=== PATIENT | female | born 1960 | race Caucasian/White ===

== ENCOUNTER 2017-10-11 23:08 | Inpatient (IN) | payer MEDICARE ==
--- NOTE | 2017-10-11 23:53 | ED ---
Psych HPI - General Source: patient Mode of arrival: ambulatory <Kevin Reis - Last Filed: 10/11/17 23:50> <Vin Ford - Last Filed: 10/12/17 03:09> - General Chief Complaint: Psychiatric Symptoms Stated Complaint: mental health Time Seen by Provider: 10/11/17 23:18 - History of Present Illness Initial Comments: This 57-year-old white female presents with a complaint of some depression and suicidal ideations. She states that she has long-standing history of depression. She got out of a psychiatric facility in [place] approximately 3 weeks ago after a month long stay for depression. She states that the depression is back and is fairly severe. She relates a strong family history of depression and suicide. She does have a long history of alcohol abuse and was drinking tonight as well. She states that one point she was drinking up to 1/5 of alcohol per day. She has been homeless and was living in a tent in [place]. Her family member apparently just recently picked her up. Upon questioning regarding drug abuse she does relate that she's taken some Adderall recently. She denies any other complaints or modifying factors. ( Kevin Reis) - Related Data Allergies Allergy/AdvReac Type Severity Reaction Status Date / Time No Known Allergies Allergy Verified 10/11/17 23:14 Review of Systems ROS Other: All systems not noted in ROS Statement are negative. <Kevin Reis - Last Filed: 10/11/17 23:50> ROS Other: All systems not noted in ROS Statement are negative. <Vin Ford - Last Filed: 10/12/17 03:09> ROS Statement: Those systems with pertinent positive or pertinent negative responses have been documented in the HPI. Past Medical History Past Medical History: Hyperlipidemia, Osteoarthritis (OA) Additional Past Medical History / Comment(s): chronic neck and back pain, ETOH abuse, cyst on liver History of Any Multi-Drug Resistant Organisms: None Reported Past Surgical History: Back Surgery, Orthopedic Surgery Past Psychological History: Bipolar Smoking Status: Current every day smoker Past Alcohol Use History: Abuse, Daily Past Drug Use History: Heroin, Opiates, Prescription Drug Abuse <Kevin Reis - Last Filed: 10/11/17 23:50> General Exam Limitations: no limitations <Kevin Reis - Last Filed: 10/11/17 23:50> <Vin Ford - Last Filed: 10/12/17 03:09> - General Exam Comments Initial Comments: GENERAL: The patient is well nourished and well hydrated. VITAL SIGNS: Heart rate, blood pressure, respiratory rate reviewed as recorded in nurse's notes. EYES: Pupils are round and reactive. Extraocular movements are intact. No conjunctival / lid redness or swelling. ENT: No external evidence of injury, swelling, or ecchymosis. Airway is patent. Throat is clear. NECK: Nontender. No swelling or evidence of injury. No subcutaneous emphysema. Trachea is midline. No thyroid mass. HEART: Regular rate and rhythm. Good peripheral pulses. LUNGS/CHEST: Breath sounds clear and equal bilaterally. No rales, rhonchi, or wheezes. No ecchymosis, subcutaneous emphysema, or tenderness. ABDOMEN: Abdomen soft without tenderness. No palpable masses or organomegaly. No peritoneal signs. No abdominal wall swelling or ecchymosis. EXTREMITIES: No extremity tenderness. Normal muscle tone and function. No thoracolumbar tenderness. NEUROLOGIC: Sensation is grossly intact. Cranial nerve exam reveals face is symmetrical, tongue is midline, speech is clear. SKIN: No abrasions or ecchymosis is noted. No induration or masses noted. PSYCHIATRIC: Alert and oriented. Appropriate behavior and judgment. (Kevin Reis) Vital Signs 10/11/17 23:09 Temperature 98.2 F Pulse Rate 75 Respiratory 18 Rate Blood Pressure 142/88 O2 Sat by Pulse 98 Oximetry Medical Decision Making <Kevin Reis - Last Filed: 10/11/17 23:50> <Vin Ford - Last Filed: 10/12/17 03:09> - Medical Decision Making The patient was seen and examined. All diagnostics were reviewed. Her alcohol breath test came in 0.09. A psychiatric consult is placed and is currently pending. (Kevin Reis) - Lab Data Lab Results 10/11/17 Range/Units 23:45 Urine Opiates Screen Not Detected (NotDetected) Ur Oxycodone Screen Not Detected (NotDetected) Urine Methadone Screen Not Detected (NotDetected) Ur Propoxyphene Screen Not Detected (NotDetected) Ur Barbiturates Screen Not Detected (NotDetected) U Tricyclic Antidepress Not Detected (NotDetected) Ur Phencyclidine Scrn Not Detected (NotDetected) Ur Amphetamines Screen Not Detected (NotDetected) U Methamphetamines Scrn Not Detected (NotDetected) U Benzodiazepines Scrn Not Detected (NotDetected) Urine Cocaine Screen Not Detected (NotDetected) U Marijuana (THC) Screen Not Detected (NotDetected) Disposition Is patient prescribed a controlled substance at d/c from ED?: No <Kevin Reis - Last Filed: 10/11/17 23:50> Time of Disposition: 03:09 <Vin oFrd - Last Filed: 10/12/17 03:09> Clinical Impression: Depression, Suicidal ideation, Alcohol intoxication, Alcohol abuse, Drug abuse Disposition: ADMITTED IP TO THIS HOSP Condition: Fair
[2017-10-12 00:07] LABS: Amphetamine Screen,Urine Not Detected (NotDetected); Barbiturate Screen,Urine Not Detected (NotDetected); Benzodiazepines Screen,Urine Not Detected (NotDetected); Cocaine Screen,Urine Not Detected (NotDetected); Methadone Screen, Urine Not Detected (NotDetected); Opiate Screen,Urine Not Detected (NotDetected); Oxycodone Screen, Urine Not Detected (NotDetected); Phencyclidine Screen,Urine Not Detected (NotDetected); Tricyclic Antidepressant,Urine Not Detected (NotDetected); Urn Cannabinoid Scrn Not Detected (NotDetected)
[2017-10-12] MEDS ORDERED: MAGNESIUM HYDROXIDE 2,400 MG/10 ML CUP PO PRN (03:21)
[2017-10-12] MEDS ORDERED: MAG HYDROX/AL HYDROX/SIMETH 30 ML CUP PO PRN (03:21)
[2017-10-12] MEDS ORDERED: POLYETHYLENE GLYCOL 3350 17 GM POWD.PACK PO PRN (06:53)
[2017-10-12] MEDS: LORazepam 1 MG TAB PO SCH ×2 (08:26→20:45)
[2017-10-12] MEDS: ACETAMINOPHEN TAB 325 MG TAB PO PRN ×2 (08:28→14:59)
[2017-10-12 08:37] LABS: Basophils % (A) 1 %; Eosinophils # (A) 0.4 k/uL (0-0.7); Eosinophils % (A) 7 %; HCT 44.3 % (34.0-46.0); HGB 14.9 gm/dL (11.4-16.0); Lymphocytes # (A) 2.5 k/uL (1.0-4.8); Lymphocytes % (A) 41 %; MCH 33.9 pg (25.0-35.0); MCHC 33.7 g/dL (31.0-37.0); MCV 100.5 fL (80.0-100.0); Mean Platelet Volume 7.4; Monocytes # (A) 0.4 k/uL (0-1.0); Monocytes % (A) 6 %; Neutrophils # (A) 2.6 k/uL (1.3-7.7); Neutrophils % (A) 41 %; Platelet Count 239 k/uL (150-450); RBC 4.41 m/uL (3.80-5.40); RDW 13.3 % (11.5-15.5); WBC 6.2 k/uL (3.8-10.6)
[2017-10-12 08:48] LABS: ALT 175 U/L (9-52); AST 135 U/L (14-36); Albumin 4.2 g/dL (3.5-5.0); Alkaline Phosphatase 107 U/L (38-126); Anion Gap 12 mmol/L; Blood Urea Nitrogen 10 mg/dL (7-17); Calcium 9.6 mg/dL (8.4-10.2); Carbon Dioxide 30 mmol/L (22-30); Chloride 101 mmol/L (98-107); Cholesterol 256 mg/dL (<200); Glucose 122 mg/dL (74-99); HDL Cholesterol 103 mg/dL (40-60); LDL Cholesterol,Calculated 137 mg/dL (0-99); Sodium 143 mmol/L (137-145); Total Bilirubin 0.8 mg/dL (0.2-1.3); Triglycerides 80 mg/dL (<150)
[2017-10-12] MEDS: NICOTINE 21MG/24HR PATCH TRANSDERM SCH (08:53)
[2017-10-12] MEDS: FOLIC ACID 1 MG TAB PO SCH (12:01)
[2017-10-12] MEDS: THIAMINE 100 MG TAB PO SCH (12:01)
--- NOTE | 2017-10-12 12:14 | HP ---
HISTORY AND PHYSICAL DATE OF SERVICE/DICTATION: 10/12/2017 IDENTIFYING DATA: This patient is a 57-year-old female who was admitted to the mental health unit through the emergency room with suicidal ideation. The patient presented with her friend stating that she had been feeling markedly depressed, hopeless and suicidal. She had plans of overdosing with medication or cutting her wrist. She states that she has a long history of mental illness symptoms. She states that she has been diagnosed with bipolar disorder. However, she reports never having a hypomanic or manic episode. We reviewed criteria for hypomania or lissett, and she does not endorse those. She states that she has had numerous depressive episodes as we review criteria for those. Her sleep has been poor as she has been off of Seroquel for 3 weeks. Appetite has been decreased. She has experienced some nausea. Energy level is low. She does feel hopeless. She describes having no thoughts of harming others. She is endorsing no auditory or visual hallucinations or any specific delusions. She endorses intermittent feelings of anxiety. She has recently relocated to this area from [place] and plans to reside here upon discharge. PAST PSYCHIATRIC HISTORY: She has had approximately 10 inpatient psychiatric admissions, the last one was at [place] approximately 1 month ago. She has had 5 to 6 suicide attempts in the past, which have been primarily overdoses with medication. She has been prescribed Seroquel with some success, but she has been off of that for 3 weeks and she states she cannot sleep without it. She was taking 100 mg in the morning and 300 mg at bedtime at most, but she states really all she needs 200 mg at bedtime. She was on Trintellix 20 mg daily and Ativan. Historically, she has also been prescribed Remeron, Depakote, Lexapro, Zoloft, Prozac, Paxil, Celexa, Effexor, Cymbalta, Lamictal, Zyprexa, Risperdal, Abilify, naltrexone, and Antabuse. She states Prozac was helpful for depressive symptoms in the past. She had no side effects from it, but simply stopped taking it. PAST MEDICAL HISTORY: She reports she is on disability for back pain, carpal tunnel symptoms, arthritis, and IBS. ALLERGIES: No known drug allergies. She is also known to have hypothyroidism. She takes Synthroid, dosage unknown. CHEMICAL DEPENDENCY HISTORY: She reports struggling with alcohol use disorder for numerous years. Her longest sobriety was 7 years and she relapsed this past August. She began consuming a fifth of liquor daily, but states that she has tapered that down to one pint a day recently. She has been in inpatient chemical dependency treatment more than 6 times several times at [facility] and at least twice with the [facility]. FAMILY PSYCHIATRIC HISTORY: Her mother was known to be a paranoid schizophrenic. Her mother attempted suicide by shooting herself in the head but survived and ultimately of lung cancer. She had a brother who was 12 years old, who committed suicide via gunshot wound and a brother who is 32 years old, who committed suicide via gunshot wound. FAMILY CHEMICAL DEPENDENCY HISTORY: Her father had an alcohol use disorder. She states the whole family struggles with alcohol. SOCIAL HISTORY: The patient is 57 years old. She is . She has 4 daughters. She has been residing with a friend here in the [facility]. She is on a disability income. She is not employed. No history of service. She has a 12th grade education. She has 3 living siblings, 2 are as noted. She is originally from [place], [place]. She resided in [place] and now has moved back to the [facility]. She plans to reside with a friend in [place] upon discharge. LEGAL HISTORY: She has been arrested for domestic violence 3 times, once for aggravated assault. She has 3 DUI arrests. She does not drive. She has been incarcerated in shelter for 30 to 40 days at a time, 5 to 6 times throughout her life. Abuse history none reported. MENTAL STATUS EXAM: The patient is a female appearing her stated age. She has a disheveled appearance. She is missing teeth. She is dressed in hospital gowns. Eye contact is appropriate. She is pleasant and cooperative. She maintains a constricted affect. She describes a depressed mood with hopeless thinking and ongoing suicidal ideation. She is reporting no homicidal ideation. She is reporting no auditory or visual hallucinations or any specific delusions. There is no observed evidence of psychosis. She demonstrates no tangential thinking, loose associations or flight of ideas. She does not present hypomanic or manic at this time. She demonstrates no verbal or physical aggressiveness. She demonstrates no abnormal involuntary movements. She is oriented to person, place, and date. She is able to spell world backwards. STRENGTHS: Support from friend upon discharge, willingness to receive treatment at this time. WEAKNESSES: Alcohol use disorder. INTELLECT: Average. IMPRESSIONS: 1. Depression, unspecified; rule out bipolar disorder, most recent depressed versus major depressive disorder, alcohol use disorder. 2. Hypothyroidism, irritable bowel syndrome, chronic pain, carpal tunnel symptoms, osteoarthritis. 3. Significant psychosocial dysfunction due to psychiatric symptoms including alcohol use disorder. PLAN: The patient has been admitted to the mental health unit. She is here voluntarily. We reviewed her presenting symptoms and treatment options. We decided to initiate the Seroquel 200 mg at bedtime as this will help with her sleep and serve as a mood stabilizer if in fact she does have a bipolar disorder. She is prescribed Ativan 1 mg twice daily scheduled and p.r.n. Ativan is available as needed for any alcohol withdrawal symptoms. Her vital signs are stable. With outstretched arms, she demonstrates a very mild tremor. She will be seen by internal medicine for routine history and physical exam. We will need to confirm her dose of Synthroid and restart that medication if appropriate. We will involve family or friends in treatment and discharge planning as she will allow. She is encouraged to participate in the milieu. FABRICIO / LATANYA: [id number] /
[2017-10-12] MEDS: LORazepam 1 MG TAB PO PRN (14:59)
[2017-10-12 18:15] LABS: Hemoglobin A1C 5.6 % (4.0-6.0)
--- NOTE | 2017-10-12 19:25 | P.MDCNMH ---
History of Present Illness H&P Date: 10/12/17 Chief Complaint: Suicidal thoughts. 57-year-old female presented to the ER because of worsening symptoms of depression and suicidal ideations. Patient has long-standing history of depression. She has hx of multiple psychiatric admissions because of depression and actually she got out of a psychiatric facility in [place] approximately 3 weeks ago after a month long stay for depression. She has been taking seroquel to improve her symptoms but since she moved to [place] 3 weeks ago she hasn't been taking it and because of that she can't sleep. She relates a strong family history of depression and suicide, 2 of her brothers committed suicide. She does have a long history of alcohol abuse, most recently she has been drinking a pint of wiskey daily. Was doing a fifth earlier. She has been homeless and was living in a tent in [place] and she just moved to live with a friend here in [place]. No physical complaints other than some mild nausea and diarrhea, she does suffer from IBS. Review of Systems 12 point ROS performed, negative except HPI. Past Medical History Past Medical History: Hyperlipidemia, Osteoarthritis (OA) Additional Past Medical History / Comment(s): chronic neck and back pain, ETOH abuse, cyst on liver, IBS, Capral Tunnel Syndrome History of Any Multi-Drug Resistant Organisms: None Reported Past Surgical History: Back Surgery, Orthopedic Surgery Past Psychological History: Bipolar Smoking Status: Current every day smoker Past Alcohol Use History: Abuse, Daily Past Drug Use History: Heroin, Marijuana, Opiates, Prescription Drug Abuse - Past Family History Brother(s) Additional Family Medical History / Comment(s): Suicide 2 brothers. Medications and Allergies Home Medications and Allergies Comment(s): Reviewed Allergies Allergy/AdvReac Type Severity Reaction Status Date / Time No Known Allergies Allergy Verified 10/11/17 23:14 Physical Exam Vitals: Vital Signs Temp Pulse Pulse Resp BP BP Pulse Ox 10/12/17 04:19 97.7 F 76 18 124/71 94 L 10/12/17 03:10 74 20 119/69 96 10/11/17 23:09 98.2 F 75 18 142/88 98 Intake and Output 10/11/17 10/11/17 10/12/17 14:59 22:59 06:59 Other: Weight 63.8 kg Constitutional: No acute distress, conversant, pleasant Eyes:Anicteric sclerae, moist conjunctiva, no lid-lag, PERRLA, ENMT: Oropharynx clear, no erythema, exudates Neck: Supple, FROM, no masses, or JVD, No carotid bruits, No thyromegaly Lungs: Clear to auscultation, Clear to percussion, Normal respiratory effort, no accessory muscle use Cardiovascular: Heart regular in rate and rhythm, No murmurs, gallops, or rubs, No peripheral edema Abdominal: Soft, Nontender, no guarding, rebound or rigidity, Normoactive bowel sounds, No hepatomegaly, No splenomegaly, No palpable mass Skin: Normal temperature, tone, texture, turgor, no induration, No subcutaneous nodules, No rash, lesions, No ulcers Extremities: No digital cyanosis, No clubbing, Pedal pulses intact and symmetrical, Radial pulses intact and symmetrical, No calf tenderness Psychiatric: Alert and oriented to person, place and time, appropriate affect, intact judgement Neuro: Muscles Strength 5/5 in all 4 extremities, Sensation to light touch grossly present throughout, Cranial nerves II-XII grossly intact, no focal sensory deficits Cranial Nerve Examination - Cranial Nerves Cranial Nerve II- Optic: Intact Cranial Nerve III- Oculomotor: Intact Cranial Nerve IV- Trochlear: Intact Cranial Nerve V- Trigeminal: Intact Cranial Nerve - Abducens: Intact Cranial Nerve VII- Facial: Intact Cranial Nerve VIII- Auditory: Intact Cranial Nerve IX- Glossopharyngeal: Intact Cranial Nerve X- Vagus: Intact Cranial Nerve XI- Accessory: Intact Cranial Nerve XII- Hypoglossal: Intact Results CBC & Chem 7: 10/12/17 08:11 10/12/17 08:11 Assessment and Plan Plan: 1- Depression and suicidal ideation: Management per psychiatry Suicide precautions 2- Alcohol abuse Would treat symptoms of withdrawal with benzodiazepines as needed Start multivitamins, thiamine and folic acid 3-Hyperlipidemia Check lipid profile 4- Hypothyroidism: Check TSH 5- Health maintenance: Check CBC, CMP, urine drug screen
[2017-10-12] MEDS: QUEtiapine 100 MG TAB PO SCH (20:45)
[2017-10-13] MEDS: LEVOTHYROXINE 75 MCG TAB PO SCH (06:14)
[2017-10-13] MEDS: NICOTINE 21MG/24HR PATCH TRANSDERM SCH (08:16)
[2017-10-13] MEDS: LORazepam 1 MG TAB PO SCH ×2 (08:16→20:01)
[2017-10-13] MEDS: ACETAMINOPHEN TAB 325 MG TAB PO PRN ×2 (08:17→15:24)
--- NOTE | 2017-10-13 09:25 | P.PN ---
Progress Note - Text Interval history: The patient is found in her room she follows me to an interview room. She reports her mood is flat. She describes not feeling much at all. She does still have hopelessness thinking. She was able to eat this morning but chronically struggles with irritable bowel symptoms. She slept approximate 6 hours. She states she still feels tired from the Seroquel and we decided not to titrate that further today. She has been using the Ativan for prevention of alcohol withdrawal. Vital signs reviewed they're within normal limits. We discussed other medication options such as titrating the Seroquel further if needed or possibly using the Prozac again as an antidepressant. We discussed the importance of her attending groups today. Mental status exam: The patient is alert she has a disheveled appearance. She is dressed in hospital gowns. With outstretched arms she demonstrates a very fine amplitude tremor of both upper extremities. She maintains alertness throughout the interview. Eye contact is good speech is fluent spontaneous nonpressured. She maintains a bland affect she describes her mood is flat. She continues to endorse hopelessness thinking in the context of recent suicidal ideation. She reports no homicidal ideation. She is endorsing no auditory or visual hallucinations or any specific delusions. There is no observed evidence of psychosis. She demonstrates no tangential thinking loose associations or flight of ideas and does not appear hypomanic or manic at this time. She demonstrates no verbal or physical aggressiveness she demonstrates no abnormal involuntary movements. Insight and judgment limited. Plan: The patient will continue on the Seroquel as written and the Ativan as needed. The goal would be to taper her off of Ativan prior to discharge. She should be encouraged to continue considering inpatient chemical dependency treatment. We will continue to monitor her for safety.
[2017-10-13] MEDS: FOLIC ACID 1 MG TAB PO SCH (12:18)
[2017-10-13] MEDS: THIAMINE 100 MG TAB PO SCH (12:18)
[2017-10-13] MEDS: MULTIVITAMINS, THERA 1 EACH TAB PO SCH (12:18)
[2017-10-13 12:43] VITALS: BMI 24.5
[2017-10-13] MEDS: LORazepam 1 MG TAB PO PRN (15:24)
[2017-10-13] MEDS: QUEtiapine 100 MG TAB PO SCH (20:01)
[2017-10-14] MEDS: LEVOTHYROXINE 75 MCG TAB PO SCH (05:49)
[2017-10-14] MEDS: MULTIVITAMINS, THERA 1 EACH TAB PO SCH (08:09)
[2017-10-14] MEDS: NICOTINE 21MG/24HR PATCH TRANSDERM SCH (08:09)
[2017-10-14] MEDS: THIAMINE 100 MG TAB PO SCH (08:09)
[2017-10-14] MEDS: FOLIC ACID 1 MG TAB PO SCH (08:09)
[2017-10-14] MEDS: LORazepam 1 MG TAB PO SCH ×2 (08:10→20:26)
--- NOTE | 2017-10-14 09:14 | P.PN ---
Progress Note - Text Progress Note Date: 10/14/17 Patient was seen for follow-up examination. She was lying down in her bed instead of attending the group. Patient apparently was in a psychiatric hospital in [place] until 3 weeks ago. She came to [facility], continue to drink and came to the ER with suicidal thoughts. She is on Seroquel 100 mg at bedtime. She said she slept well last night. She does not have any suicidal thoughts anymore. But she thinks she is still depressed. This is a white ambulatory female with adequate hygiene. She is cooperative and polite. She does not show any psychomotor agitation or retardation. Her speech is spontaneous relevant and goal-directed. Her mood is cheerful and affect is appropriate. She denies current suicide and homicide thoughts. She denies hallucinations and delusional thinking. She is well oriented with adequate memory concentration general knowledge etc. Plan: Continue Seroquel 100 mg at bedtime. She was encouraged to attend groups and participate in milieu activities.
[2017-10-14] MEDS: LORazepam 1 MG TAB PO PRN (14:45)
[2017-10-14] MEDS: ACETAMINOPHEN TAB 325 MG TAB PO PRN (14:45)
[2017-10-14] MEDS: QUEtiapine 100 MG TAB PO SCH (20:27)
[2017-10-15] MEDS: LEVOTHYROXINE 75 MCG TAB PO SCH (05:56)
[2017-10-15 06:33] VITALS: BP 118/58; PULSE 57; RESP 16; TEMP 97.9
[2017-10-15] MEDS: LORazepam 1 MG TAB PO SCH (09:53)
[2017-10-15] MEDS: ACETAMINOPHEN TAB 325 MG TAB PO PRN (09:53)
--- NOTE | 2017-10-15 09:58 | P.DS ---
Providers Date of admission: 10/12/17 03:04 Expected date of discharge: 10/15/17 Attending physician: Max Choe Consults: 10/12/17 03:21 Consult Physician Routine Consulting Provider: Diamond Mccurdy Consult Reason/Comments: H &P Do you want consulting provider notified?: Yes Primary care physician: Stated None Hospital Course: Patient had her psychiatric evaluation done by Dr. Monique, had her physical examination and psychosocial evaluation. After psychiatric evaluation she was started on Seroquel 100 mg at bedtime for mood stabilization. She was detoxed per hospital protocol. She started to feel better, her suicide thoughts went away, was attending groups and participating, socializing with peers and interacting with staff members. She felt well enough to go home and stay with her friend. In view of this it was agreed to discharge her. Condition on discharge: This is a white ambulatory female with good hygiene. She is polite friendly and cooperative. She does not show any psychomotor agitation or retardation. Her speech is spontaneous relevant and goal- directed. Her mood is cheerful and affect is appropriate. She denies suicidal and homicidal thoughts, hallucinations and delusional thinking. She is well oriented with good memory concentration general fund of knowledge etc. Her insight and judgment are improving. Diagnosis on discharge: Alcohol use disorder severe F 10.20. Unspecified depressive disorder F 32.9 NKDA. Hypothyroidism. Patient was given a handwritten 30 day prescription for Seroquel 100 mg at bedtime Synthroid 37.5 g daily and she said she will not get goal-qme-owotetd multivitamins. Patient was advised and agreed to take her medications as prescribed, not to drink alcohol or use drugs, not to drive or operate missionary if she feels sleepy, to seek alcohol and drug counseling, to learn better coping skills through therapy, to call her psychiatrist or therapist if she develops depression, suicide thoughts etc. and if she cannot get hold of them to go to nearest ER. Patient Condition at Discharge: Good Plan - Discharge Summary Discharge Rx Participant: No New Discharge Prescriptions: New Multivitamins, Thera [Multivitamin (formulary)] 1 each PO DAILY@1200 tab Levothyroxine Sodium [Synthroid] 37.5 mcg PO DAILY@0630 30 Days #30 tab Discharge Medication List Levothyroxine Sodium [Synthroid] 37.5 mcg PO DAILY@0630 30 Days #30 tab 05/22/ 18 [Rx] Multivitamins, Thera [Multivitamin (formulary)] 1 each PO DAILY@1200 tab [Rx]
[2017-10-15] MEDS: FOLIC ACID 1 MG TAB PO SCH (11:06)
[2017-10-15] MEDS: MULTIVITAMINS, THERA 1 EACH TAB PO SCH (11:06)
[2017-10-15] MEDS: THIAMINE 100 MG TAB PO SCH (11:06)
== END 2017-10-15 13:37 | disposition home or self-care (01) | DRG 881 ==
LOC: EC 23:08 → 3MHU 10-12 03:04
PROVIDERS: ADMIT Psychiatry & Neurology Psychiatry; ATTEND Psychiatry & Neurology Psychiatry
DX: F32.9 Major depressive disorder, single episode, unspecified (principal); R45.851 Suicidal ideations; F10.20 Alcohol dependence, uncomplicated; E03.9 Hypothyroidism, unspecified; E78.5 Hyperlipidemia, unspecified; F17.200 Nicotine dependence, unspecified, uncomplicated; G89.4 Chronic pain syndrome; K58.9 Irritable bowel syndrome, unspecified; M19.90 Unspecified osteoarthritis, unspecified site; Z59.0 Homelessness; Z79.899 Other long term (current) drug therapy; Z80.1 Family history of malignant neoplasm of trachea, bronchus and lung; Z81.8 Family history of other mental and behavioral disorders; Z91.5 Personal history of self-harm; Z79.890 Hormone replacement therapy
CPT/HCPCS: 80053; 80061; 80306; 82075; 83036; 84443; 85025; 99285

== ENCOUNTER 2017-10-30 18:34 | Inpatient (IN) | payer MEDICARE ==
[2017-10-30] MEDS ORDERED: SODIUM CHLORIDE 0.9% 1,000 ML IV STA (18:55)
[2017-10-30 19:17] LABS: Basophils # (A) 0.1 k/uL (0-0.2); Basophils % (A) 1 %; Eosinophils # (A) 0.2 k/uL (0-0.7); Eosinophils % (A) 3 %; HCT 43.8 % (34.0-46.0); HGB 14.5 gm/dL (11.4-16.0); Lymphocytes # (A) 2.3 k/uL (1.0-4.8); Lymphocytes % (A) 39 %; MCH 33.1 pg (25.0-35.0); MCV 100.3 fL (80.0-100.0); Macrocytosis Slight; Mean Platelet Volume 7.1; Monocytes # (A) 0.2 k/uL (0-1.0); Monocytes % (A) 4 %; Neutrophils % (A) 51 %; Platelet Count 240 k/uL (150-450); RBC 4.37 m/uL (3.80-5.40); RDW 14.2 % (11.5-15.5); WBC 5.8 k/uL (3.8-10.6)
[2017-10-30 19:28] LABS: ALT 50 U/L (9-52); AST 58 U/L (14-36); Albumin 4.5 g/dL (3.5-5.0); Alkaline Phosphatase 143 U/L (38-126); Anion Gap 15 mmol/L; Blood Urea Nitrogen 11 mg/dL (7-17); Calcium 8.5 mg/dL (8.4-10.2); Carbon Dioxide 26 mmol/L (22-30); Chloride 109 mmol/L (98-107); Glucose 92 mg/dL (74-99); Potassium 3.4 mmol/L (3.5-5.1); Sodium 150 mmol/L (137-145); Total Bilirubin 0.5 mg/dL (0.2-1.3); Total Protein 7.3 g/dL (6.3-8.2)
--- NOTE | 2017-10-30 19:37 | ED ---
General Adult HPI - General Chief complaint: Alcohol Stated complaint: ETOH Time Seen by Provider: 10/30/17 18:55 Source: EMS Mode of arrival: EMS Limitations: altered mental status, physical limitation - History of Present Illness Initial comments: Raeann Sparrow is a 57 yo female who is brought to the emergency department today via EMS after being found sleeping in a grocery cart kowalski at a local grocery store. Patient states that she is an alcoholic, she drinks every day, she states that she's been drinking throughout the day today that she fell asleep. She denies any injuries or falls today. She states that she just wants to be discharged because she knows that she states in the hospital too long she will withdraw and then she'll be very sick and will have to get very drunk when she is discharged. Patient states that she is currently homeless, she's been sleeping in the [place]. She states that she has no support system and noone she can call for a place to stay or a ride home. She states that she drinks to harm herself because she doesn't care about life anymore. Patient did have a fall a couple of days ago and does have sutures in her forehead. She denies any pain. - Related Data Home Medications Medication Instructions Recorded Confirmed Aspirin [Adult Low Dose Aspirin EC] 81 mg PO DAILY 10/30/17 10/30/17 QUEtiapine FUMARATE [SEROquel] 300 mg PO HS 10/30/17 10/30/17 QUEtiapine [SEROquel] 100 mg PO HS 10/30/17 10/30/17 Allergies Allergy/AdvReac Type Severity Reaction Status Date / Time No Known Allergies Allergy Verified 10/30/17 19:42 Review of Systems ROS Statement: Those systems with pertinent positive or pertinent negative responses have been documented in the HPI. Review of systems is limited by the patient's intoxication and unwillingness to participate in history taking ROS Other: All systems not noted in ROS Statement are negative. Past Medical History Past Medical History: Hyperlipidemia, Osteoarthritis (OA) Additional Past Medical History / Comment(s): chronic neck and back pain, ETOH abuse, cyst on liver, IBS, Capral Tunnel Syndrome History of Any Multi-Drug Resistant Organisms: None Reported Past Surgical History: Back Surgery, Orthopedic Surgery Past Anesthesia/Blood Transfusion Reactions: No Reported Reaction Past Psychological History: Bipolar Smoking Status: Current every day smoker - Past Family History Brother(s) Additional Family Medical History / Comment(s): Suicide 2 brothers. General Exam Limitations: altered mental status, physical limitation General appearance: alert Head exam: Present: normocephalic, other (Well-healing sutures on the right forehead) Eye exam: Present: PERRL, EOMI ENT exam: Present: mucous membranes dry Respiratory exam: Present: wheezes (Expiratory wheezes, patient is occur every day smoker). Absent: respiratory distress Cardiovascular Exam: Present: regular rate GI/Abdominal exam: Present: soft. Absent: distended External exam: Present: normal external exam Extremities exam: Present: full ROM Back exam: Present: full ROM Neurological exam: Present: alert, other (Oriented to person, place, uncertain of day, somewhat confused about events leading up to hospitalization) Psychiatric exam: Present: agitated Skin exam: Present: warm, dry Course Vital Signs 10/30/17 10/30/17 10/30/17 18:41 20:30 22:50 Temperature 97.9 F 97.9 F Pulse Rate 91 89 86 Respiratory 16 20 16 Rate Blood Pressure 151/88 132/56 114/59 O2 Sat by Pulse 95 99 98 Oximetry Medical Decision Making - Medical Decision Making The patient was seen and evaluated, history was obtained from EMS and the patient The patient with a significant history of alcohol abuse presenting intoxicated after being found sleeping outside. The patient has a history of alcohol withdrawal in the past and is concerned that if she is hospitalized she will have acute alcohol withdrawal which will cause her to become sick and have to be discharged home so that she can drink. Patient admits to drinking in an attempt to harm or self and expresses feelings of helplessness, hopelessness and stating that she doesn't care if she dies. Considering that the patient cannot provide an accurate history and does have a history of falls in the past I will obtain a computed tomography scan of the head and neck. Patient unwilling to wear a cervical collar. Labs reveal mild hypernatremia as well as a very elevated alcohol level at 333 She care was discussed with Jose Alfredo NOVA who accepts the patient to Dr. Vernon's service with a CIWA scale ordered for impending alcohol withdrawal. Admission orders placed - Lab Data Result diagrams: 10/30/17 19:00 10/30/17 19:00 Lab Results 10/30/17 10/30/17 Range/Units 19:00 19:00 WBC 5.8 (3.8-10.6) k/uL RBC 4.37 (3.80-5.40) m/uL Hgb 14.5 (11.4-16.0) gm/dL Hct 43.8 (34.0-46.0) % MCV 100.3 H (80.0-100.0) fL MCH 33.1 (25.0-35.0) pg MCHC 33.0 (31.0-37.0) g/dL RDW 14.2 (11.5-15.5) % Plt Count 240 (150-450) k/uL Neutrophils % 51 % Lymphocytes % 39 % Monocytes % 4 % Eosinophils % 3 % Basophils % 1 % Neutrophils # 3.0 (1.3-7.7) k/uL Lymphocytes # 2.3 (1.0-4.8) k/uL Monocytes # 0.2 (0-1.0) k/uL Eosinophils # 0.2 (0-0.7) k/uL Basophils # 0.1 (0-0.2) k/uL Macrocytosis Slight Sodium 150 H (137-145) mmol/L Potassium 3.4 L (3.5-5.1) mmol/L Chloride 109 H (98-107) mmol/L Carbon Dioxide 26 (22-30) mmol/L Anion Gap 15 mmol/L BUN 11 (7-17) mg/dL Creatinine 0.55 (0.52-1.04) mg/dL Est GFR (CKD-EPI)AfAm >90 (>60 ml/min/1.73 sqM) Est GFR (CKD-EPI)NonAf >90 (>60 ml/min/1.73 sqM) Glucose 92 (74-99) mg/dL Calcium 8.5 (8.4-10.2) mg/dL Total Bilirubin 0.5 (0.2-1.3) mg/dL AST 58 H (14-36) U/L ALT 50 (9-52) U/L Alkaline Phosphatase 143 H (38-126) U/L Total Protein 7.3 (6.3-8.2) g/dL Albumin 4.5 (3.5-5.0) g/dL Serum Alcohol 333 mg/dL Disposition Clinical Impression: Alcohol withdrawal syndrome Disposition: ADMITTED IP TO THIS HOSP Decision Time: 21:50
[2017-10-30 19:50] LABS: Alcohol 333 mg/dL
--- NOTE | 2017-10-30 20:54 | CT ---
EXAMINATION TYPE: CT brain rosalinda aguilera DATE OF EXAM: 10/30/2017 COMPARISON: NONE HISTORY: Patient found unresponsive today; complains of neck pain CT DLP: 1254.7 mGycm Automated exposure control for dose reduction was used. TECHNIQUE: CT scan of the head and cervical spine are performed without contrast. FINDINGS: There is no acute intracranial hemorrhage, mass effect, or midline shift identified. The ventricles and sulci are within normal limits in size. The globes are intact and the visualized sin uses are clear. Cervical spine is visualized in its entirety from C1 through upper thoracic levels and demonstrates s atisfactory alignment without evidence of acute fracture or dislocation. Prevertebral soft tissue ap pears within normal limits. There are prominent multilevel cervical spondylosis changes. The C1-C2 ar ticulation is unremarkable. IMPRESSION: 1. There is no acute fracture or dislocation evident in the cervical spine. 2. No acute intracranial hemorrhage, mass effect, or midline shift is seen.
[2017-10-30] MEDS ORDERED: ONDANSETRON 4 MG/2 ML VIAL IVP PRN (21:41)
[2017-10-30] MEDS ORDERED: IBUPROFEN 400 MG TAB PO PRN (21:41)
[2017-10-30] MEDS ORDERED: NALOXONE 0.4 MG/ML 1 ML VIAL IV PRN (21:41)
[2017-10-30] MEDS ORDERED: LORazepam 2 MG/ML INJ IV PRN (21:43)
[2017-10-30] MEDS ORDERED: THIAMINE 100 MG/ML 2 ML VIAL IM STA (21:43)
[2017-10-30] MEDS ORDERED: QUEtiapine 100 MG TAB PO SCH ×2 (23:30)
[2017-10-30] MEDS ORDERED: TEMAZEPAM 15 MG CAP PO PRN (23:32)
[2017-10-30 23:34] VITALS: BMI 23.8
[2017-10-30] MEDS ORDERED: [UNRECOGNIZED DRUG - REMARK] IV ONE ×4 (23:41)
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
--- NOTE | 2017-10-31 00:18 | XR ---
EXAMINATION TYPE: XR foot complete RT DATE OF EXAM: 10/31/2017 COMPARISON: NONE HISTORY: Foot pain TECHNIQUE: 3 views FINDINGS: Metatarsals appear intact. There is a plantar calcaneal spur. I see no fracture nor disloca tion. There are no erosions. IMPRESSION: No acute abnormality of the right foot. Calcaneal spurring.
[2017-10-31 00:34] LABS: Amphetamine Screen,Urine Not Detected (NotDetected); Barbiturate Screen,Urine Not Detected (NotDetected); Benzodiazepines Screen,Urine Not Detected (NotDetected); Cocaine Screen,Urine Not Detected (NotDetected); Methadone Screen, Urine Not Detected (NotDetected); Opiate Screen,Urine Not Detected (NotDetected); Oxycodone Screen, Urine Not Detected (NotDetected); Phencyclidine Screen,Urine Not Detected (NotDetected); Tricyclic Antidepressant,Urine Not Detected (NotDetected); Urn Cannabinoid Scrn Not Detected (NotDetected)
[2017-10-31 00:44] LABS: Hyaline Casts,Urine 2 /lpf (0-2); Mucus,Urine Few /hpf; RBC,Urine 3 /hpf (0-5); Squamous Epithelial Cell,Urine 2 /hpf (0-4); WBC,Urine 4 /hpf (0-5)
[2017-10-31 00:47] LABS: Appearance,Urine Clear (Clear); Color,Urine Dark Yellow; PH, Urine 5.5 (5.0-8.0); Protein,Urine 1+ (Negative); Specific Gravity,Urine 1.013 (1.001-1.035)
[2017-10-31 00:48] LABS: Bilirubin,Urine Negative (Negative); Blood,Urine Small (Negative); Glucose,Urine (UA) Negative (Negative); Ketones,Urine Negative (Negative); Leukocyte Esterase,Urine Negative (Negative); Nitrite,Urine Negative (Negative); Urobilinogen,Urine <2.0 mg/dL (<2.0)
[2017-10-31 07:54] LABS: Basophils % (A) 1 %; Eosinophils # (A) 0.1 k/uL (0-0.7); Eosinophils % (A) 3 %; HCT 35.3 % (34.0-46.0); HGB 11.7 gm/dL (11.4-16.0); Lymphocytes # (A) 1.6 k/uL (1.0-4.8); Lymphocytes % (A) 28 %; MCH 33.4 pg (25.0-35.0); MCHC 33.2 g/dL (31.0-37.0); MCV 100.7 fL (80.0-100.0); Macrocytosis Slight; Monocytes # (A) 0.2 k/uL (0-1.0); Monocytes % (A) 4 %; Neutrophils # (A) 3.5 k/uL (1.3-7.7); Neutrophils % (A) 63 %; Platelet Count 176 k/uL (150-450); RDW 14.7 % (11.5-15.5); WBC 5.6 k/uL (3.8-10.6)
[2017-10-31 08:13] LABS: Anion Gap 10 mmol/L; Blood Urea Nitrogen 11 mg/dL (7-17); Calcium 7.7 mg/dL (8.4-10.2); Carbon Dioxide 25 mmol/L (22-30); Chloride 106 mmol/L (98-107); Glucose 74 mg/dL (74-99); Sodium 141 mmol/L (137-145)
[2017-10-31] MEDS: LORazepam 2 MG/ML INJ IV PRN ×4 (08:57→16:37)
[2017-10-31] MEDS: FAMOTIDINE 20 MG TAB PO SCH ×2 (08:59→21:30)
[2017-10-31] MEDS: NICOTINE 14MG/24HR PATCH TRANSDERM SCH (09:00)
[2017-10-31] MEDS: PANTOPRAZOLE 40 MG TABLET PO SCH (09:00)
[2017-10-31] MEDS: ASPIRIN 81 MG PO SCH (09:00)
[2017-10-31] MEDS: HEPARIN SODIUM,PORCINE 5,000 UNIT/ML 1 ML VIAL SQ SCH ×2 (09:00→21:30)
[2017-10-31] MEDS ORDERED: Potassium Replacement Protocol 1 EACH MISC MISCELLANE PRN (09:12)
[2017-10-31] MEDS: POTASSIUM CHLORIDE ER 20 MEQ TAB.ER PO SCH ×2 (10:29→12:01)
[2017-10-31] MEDS ORDERED: SODIUM CHLORIDE 0.9% 1,000 ML with POTASSIUM CHLORIDE 20 MEQ, MVI, ADULT NO.4 WITH VIT ... IV SCH ×5 (11:15)
[2017-10-31] MEDS: THIAMINE 100 MG TAB PO SCH ×2 (12:01→16:38)
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
--- NOTE | 2017-10-31 15:59 | PN ---
PROGRESS NOTE DATE OF SERVICE: 10/31/2017. INTERVAL HISTORY: This 57-year-old woman who was admitted with significant alcoholism, also dehydration. Patient also had tremors and DTs also. The patient also had foot pain and foot x-ray showed no acute abnormality and a head and cervical spine CT scan was also done which showed no acute fractures or lesions at this time. No chest pain. No palpitations. No fever. PHYSICAL EXAM: Alert and oriented x2. Pulse is 70, blood pressure 120/74, respirations 16, temperature 98.2, pulse ox 98% on room air. HEENT: Conjunctivae normal. Oral mucosa moist. NECK: No jugular venous distention. No carotid bruit. No lymph node enlargement. CARDIOVASCULAR: S1, S2. RESPIRATORY: Breath sounds diminished in the bases. Scattered rhonchi and crackles. ABDOMEN: Soft, nontender. LEGS: No edema, no swelling. NERVOUS SYSTEM: Diffuse tremors. Mild diffuse weakness. LABS: WBC 5.6 and potassium 3. Sodium is 141. ASSESSMENT: 1. Acute alcohol intoxication. 2. Acute delirium tremens. 3. Dehydration. 4. Hypokalemia. 5. Laceration wound on the right forehead, status post suturing. 6. History of hyperlipidemia. 7. History of degenerative joint disease. 8. History of chronic neck and back pain. 9. History of liver cyst. 10.History of irritable bowel syndrome. 11.History of bipolar. 12.History of nicotine dependence. 13.History of polysubstance abuse. RECOMMENDATIONS AND DISCUSSION: I recommend to continue current management and symptomatic treatment. Potassium supplementation. Continue the ENIO Mobley protocol. DT precautions and psych consultation. See orders for details. Multivitamin supplementation. Further recommendations to follow. MMODL / IJN: [id number] /
[2017-10-31] MEDS: QUEtiapine 100 MG TAB PO SCH (21:30)
[2017-11-01 07:40] LABS: Basophils % (A) 1 %; Eosinophils # (A) 0.1 k/uL (0-0.7); Eosinophils % (A) 3 %; HCT 37.1 % (34.0-46.0); HGB 12.4 gm/dL (11.4-16.0); Lymphocytes # (A) 1.1 k/uL (1.0-4.8); Lymphocytes % (A) 22 %; MCH 33.9 pg (25.0-35.0); MCHC 33.4 g/dL (31.0-37.0); MCV 101.4 fL (80.0-100.0); Macrocytosis Slight; Monocytes # (A) 0.2 k/uL (0-1.0); Monocytes % (A) 4 %; Neutrophils # (A) 3.5 k/uL (1.3-7.7); Neutrophils % (A) 68 %; Platelet Count 162 k/uL (150-450); RBC 3.66 m/uL (3.80-5.40); RDW 14.6 % (11.5-15.5); WBC 5.2 k/uL (3.8-10.6)
[2017-11-01 07:54] LABS: Anion Gap 8 mmol/L; Blood Urea Nitrogen 6 mg/dL (7-17); Calcium 8.2 mg/dL (8.4-10.2); Carbon Dioxide 27 mmol/L (22-30); Chloride 106 mmol/L (98-107); Glucose 93 mg/dL (74-99); Magnesium 1.6 mg/dL (1.6-2.3); Potassium 3.2 mmol/L (3.5-5.1); Sodium 141 mmol/L (137-145)
[2017-11-01] MEDS: LORazepam 2 MG/ML INJ IV PRN ×4 (08:42→17:24)
[2017-11-01] MEDS: HEPARIN SODIUM,PORCINE 5,000 UNIT/ML 1 ML VIAL SQ SCH ×2 (08:44→20:36)
[2017-11-01] MEDS: ASPIRIN 81 MG PO SCH (08:44)
[2017-11-01] MEDS: PANTOPRAZOLE 40 MG TABLET PO SCH (08:44)
[2017-11-01] MEDS: FAMOTIDINE 20 MG TAB PO SCH ×2 (08:44→20:36)
[2017-11-01] MEDS ORDERED: POTASSIUM CHLORIDE ER 20 MEQ TAB.ER PO STA (10:40)
[2017-11-01] MEDS: NICOTINE 14MG/24HR PATCH TRANSDERM SCH (10:48)
[2017-11-01] MEDS: THIAMINE 100 MG TAB PO SCH ×2 (13:35→17:24)
--- NOTE | 2017-11-01 13:57 | PN ---
PROGRESS NOTE DATE OF SERVICE: 11/01/2017 This is a 57-year-old woman who was admitted with acute alcoholic intoxication, also had features of delirium tremens. Patient scoring 10 on CIWA scale. Patient also had sweating and palpitation, also unsteady, complaining of gross tremors. Also no chest pain. No palpitations. No fever. PHYSICAL EXAM: Alert and oriented x3. Pulse 92, blood pressure 140/50, respirations 16, temperature 97.1, pulse ox 94% on room air. HEENT: Conjunctivae normal. NECK: No jugular venous distension. CARDIOVASCULAR: S1, S2, muffled. RESPIRATORY: Breath sounds diminished at the bases, a few rhonchi, no crackles. ABDOMEN: Soft, nontender. No mass palpable. LEGS: No edema, no swelling. NERVOUS SYSTEM: diffuse tremors present. LABS: WBC is 5, hemoglobin is 12.4, potassium 3.2. ASSESSMENT: 1. Acute alcohol intoxication. 2. Acute delirium tremens. 3. Dehydration present on admission. 4. Hypokalemia. 5. Lacerated wound on the right forehead, status post suturing. 6. Hyperlipidemia. 7. Degenerative joint disease. 8. Chronic neck and back pain. 9. History of liver cyst. 10.History of irritable bowel syndrome. 11.History of bipolar. 12.History of nicotine dependence. 13.History of polysubstance abuse. RECOMMENDATION: Recommend to continue with current management and continue with symptomatic treatment; otherwise, psychiatric input appreciated and I would also recommend alcohol rehabilitation and Social Service evaluation. Further recommendations to follow. MMODL / IJN: [id number] /
[2017-11-01 14:34] VITALS: RESP 18
[2017-11-01] MEDS: QUEtiapine 100 MG TAB PO SCH (20:36)
[2017-11-02 05:57] VITALS: BP 123/76; TEMP 97.6
[2017-11-02 07:20] LABS: Basophils % (A) 1 %; Eosinophils # (A) 0.2 k/uL (0-0.7); Eosinophils % (A) 4 %; HCT 39.6 % (34.0-46.0); HGB 13.5 gm/dL (11.4-16.0); Lymphocytes # (A) 1.4 k/uL (1.0-4.8); Lymphocytes % (A) 37 %; MCH 34.8 pg (25.0-35.0); MCHC 34.1 g/dL (31.0-37.0); Macrocytosis Slight; Mean Platelet Volume 8.1; Monocytes # (A) 0.2 k/uL (0-1.0); Monocytes % (A) 5 %; Neutrophils % (A) 51 %; Platelet Count 147 k/uL (150-450); RBC 3.88 m/uL (3.80-5.40); RDW 14.9 % (11.5-15.5); WBC 3.8 k/uL (3.8-10.6)
[2017-11-02 07:26] LABS: Anion Gap 8 mmol/L; Blood Urea Nitrogen 5 mg/dL (7-17); Calcium 8.7 mg/dL (8.4-10.2); Carbon Dioxide 24 mmol/L (22-30); Chloride 108 mmol/L (98-107); Glucose 96 mg/dL (74-99); Sodium 140 mmol/L (137-145)
[2017-11-02] MEDS: HEPARIN SODIUM,PORCINE 5,000 UNIT/ML 1 ML VIAL SQ SCH (08:16)
[2017-11-02] MEDS: NICOTINE 14MG/24HR PATCH TRANSDERM SCH (08:16)
[2017-11-02] MEDS: ASPIRIN 81 MG PO SCH (08:16)
[2017-11-02] MEDS: PANTOPRAZOLE 40 MG TABLET PO SCH (08:16)
[2017-11-02] MEDS: FAMOTIDINE 20 MG TAB PO SCH (08:16)
[2017-11-02 10:00] VITALS: PULSE 88
[2017-11-02] MEDS: THIAMINE 100 MG TAB PO SCH (10:45)
[2017-11-02] MEDS: LORazepam 2 MG/ML INJ IV PRN (11:39)
--- NOTE | 2017-11-02 19:49 | DS ---
DISCHARGE SUMMARY DATE OF SERVICE: 11/02/2017. FINAL DIAGNOSES: 1. Acute alcohol intoxication. 2. Acute delirium tremens. 3. Dehydration, present on admission. 4. Hypokalemia. 5. Left-sided wound on the right forehead, status post suturing. 6. Hyperlipidemia. 7. Degenerative joint disease. 8. History of neck and back pain. 9. History of liver cyst. 10.History of irritable bowel syndrome. 11.History of bipolar. 12.History of nicotine dependence. 13.History of polysubstance abuse. DISPOSITION: Patient will be discharged in stable condition with guarded prognosis. HISTORY OF PRESENT ILLNESS: This 57-year-old woman with a past medical history of multiple medical problems was admitted with alcohol intake the same day and was treated symptomatically. Psychiatry saw the patient. The patient improved significantly. Social Work was consulted. EXAM: Vitals were stable. CARDIOVASCULAR: S1, S2. ABDOMEN: Soft. NERVOUS SYSTEM: Nonfocal. DISCHARGE ADVICE AND MEDICATIONS: 1. Diet is cardiac. Activity limited until followup. 2. Follow up with Dr. Jeremi Rao in 2-3 days. 3. Medications: a. Ecotrin 81 mg p.o. daily. b. Pepcid 20 mg p.o. b.i.d. c. Folic acid 1 mg p.o. daily. d. Motrin 400 mg every 6 hours p.r.n. e. Ativan 1 mg p.o. t.i.d. p.r.n. f. Multivitamins 1 p.o. daily. g. Habitrol 14 daily. h. No smoking. i. No EtOH. j. Seroquel 400 mg q.h.s. k. Thiamine 100 mg p.o. daily. Once again, the patient will be discharged and follow up with Psych as advised, attend AA as well as alcohol rehab. Once again, the patient will be discharged in stable condition with a guarded prognosis. MMODL / IJN: [id number] /
== END 2017-11-02 15:03 | disposition home or self-care (01) | DRG 897 ==
LOC: EC 18:34 → 5MS5E 21:41 → OBSVTOIN 10-31 11:38
PROVIDERS: ADMIT Internal Medicine; ATTEND Internal Medicine
DX: F10.221 Alcohol dependence with intoxication delirium (principal); E87.0 Hyperosmolality and hypernatremia; R45.851 Suicidal ideations; F31.9 Bipolar disorder, unspecified; K76.89 Other specified diseases of liver; E86.0 Dehydration; E87.6 Hypokalemia; E78.5 Hyperlipidemia, unspecified; K58.9 Irritable bowel syndrome, unspecified; M19.91 Primary osteoarthritis, unspecified site; G89.29 Other chronic pain; M54.2 Cervicalgia; M79.671 Pain in right foot; M54.9 Dorsalgia, unspecified; F17.210 Nicotine dependence, cigarettes, uncomplicated; F12.11 Cannabis abuse, in remission; F11.11 Opioid abuse, in remission; Y90.8 Blood alcohol level of 240 mg/100 ml or more; Z79.82 Long term (current) use of aspirin; Z79.899 Other long term (current) drug therapy; Z59.0 Homelessness; Z81.8 Family history of other mental and behavioral disorders
CPT/HCPCS: 36415; 70450; 72125; 80048; 80053; 80306; 80320; 81001; 83735; 85025; 96360; 96372; 99285

== ENCOUNTER 2019-02-20 13:20 | Emergency (ER) | payer MEDICARE, OTHER ==
[2019-02-20 13:27] VITALS: TEMP 97.4
--- NOTE | 2019-02-20 14:16 | XR ---
EXAMINATION TYPE: XR chest 2V DATE OF EXAM: 02/20/2019 COMPARISON: NONE TECHNIQUE: PA and lateral views submitted. HISTORY: Cough FINDINGS: The lungs are clear and there is no pneumothorax, pleural effusion, or focal pneumonia. Hyperinflat ion suggests COPD biapical pleural thickening. Degenerative change of the spine. No overt failure. IMPRESSION: 1. No acute process.
--- NOTE | 2019-02-20 14:22 | ED ---
General Adult HPI - General Chief complaint: Upper Respiratory Infection Stated complaint: Ear pain Time Seen by Provider: 02/20/19 14:06 Source: patient, RN notes reviewed Mode of arrival: ambulatory Limitations: no limitations - History of Present Illness Initial comments: 58-year-old female with a past medical history of chronic neck and back pain, a lcohol abuse, IBS, carpal tunnel presents to the emergency department for a chief complaint of cough. Patient states cough has been ongoing for about 2 weeks now. States she is coughing up green sputum at times. Patient denies any shortness of breath or chest pain associated with this. Denies any fevers or chills. Does admit to current smoking. Denies any history of COPD or asthma. Patient is also complaining of mild congestion and left ear pain. States she feels that she cannot hear out of her left ear. States has also been ongoing for about 2 weeks.Patient has no other complaints at this time including shortness of breath, chest pain, abdominal pain, nausea or vomiting, headache, or visual changes. - Related Data Home Medications Medication Instructions Recorded Confirmed Aspirin [Adult Low Dose Aspirin EC] 81 mg PO DAILY 10/30/17 10/30/17 QUEtiapine FUMARATE [SEROquel] 300 mg PO HS 10/30/17 10/30/17 QUEtiapine [SEROquel] 100 mg PO HS 10/30/17 10/30/17 Previous Rx's Medication Instructions Recorded Famotidine [Pepcid] 20 mg PO BID #60 tab 11/02/17 Folic Acid 1 mg PO DAILY #30 tablet 11/02/17 Ibuprofen [Motrin] 400 mg PO Q6HR PRN tab 11/02/17 LORazepam [Ativan] 1 mg PO TID PRN #15 tab 11/02/17 Multivitamins, Thera [Multivitamin] 1 tab PO DAILY #30 tablet 11/02/17 Nicotine 14Mg/24Hr Patch [Habitrol] 1 patch TRANSDERM DAILY #30 patch 11/02/17 Thiamine [Vitamin B-1] 100 mg PO DAILY #30 tablet 11/02/17 Azithromycin [Zithromax Z-pack] 250 mg PO DIRECTED #6 tab 02/20/19 Allergies Allergy/AdvReac Type Severity Reaction Status Date / Time No Known Allergies Allergy Verified 02/20/19 13:27 Review of Systems ROS Statement: Those systems with pertinent positive or pertinent negative responses have been documented in the HPI. ROS Other: All systems not noted in ROS Statement are negative. Past Medical History Past Medical History: Hyperlipidemia, Osteoarthritis (OA) Additional Past Medical History / Comment(s): chronic neck and back pain, ETOH abuse, cyst on liver, IBS, Capral Tunnel Syndrome History of Any Multi-Drug Resistant Organisms: None Reported Past Surgical History: Back Surgery, Orthopedic Surgery Past Anesthesia/Blood Transfusion Reactions: No Reported Reaction Past Psychological History: Bipolar Smoking Status: Current every day smoker Past Alcohol Use History: None Reported Past Drug Use History: None Reported - Past Family History Brother(s) Additional Family Medical History / Comment(s): Suicide 2 brothers. General Exam Limitations: no limitations General appearance: alert, in no apparent distress Head exam: Present: atraumatic, normocephalic, normal inspection Eye exam: Present: normal appearance, PERRL, EOMI. Absent: scleral icterus, conjunctival injection, periorbital swelling ENT exam: Present: normal exam, normal oropharynx, mucous membranes moist, normal external ear exam. Absent: TM's normal bilaterally (Cerumen impaction noted in the left ear. Right ear appears normal.) Neck exam: Present: normal inspection, full ROM. Absent: tenderness, meningismus, lymphadenopathy Respiratory exam: Present: normal lung sounds bilaterally. Absent: respiratory distress, wheezes, rales, rhonchi, stridor Cardiovascular Exam: Present: regular rate, normal rhythm, normal heart sounds. Absent: systolic murmur, diastolic murmur, rubs, gallop, clicks Neurological exam: Present: alert Course Vital Signs 02/20/19 02/20/19 13:25 13:30 Temperature 97.4 F L Pulse Rate 85 Respiratory 20 19 Rate Blood Pressure 113/80 O2 Sat by Pulse 97 Oximetry Procedures - Ear Wax Removal Left Ear Ear Canal Irrigated by: RN, other (JULIA) Ear Canal Irrigated With: other (10 ml syringe and 18 G catheter) Results: Re-examined: cerumen removed completely TM Visible: TM(s) intact, normal appearance Ear Canal: atraumatic Patient Tolerated Procedure: well Complications: no problems - Smoking Cessation Time Spent Discussing Smoking Cessation w/Patient (Minutes): 3 Patient Acknowledges Need for Cessation: Yes Medical Decision Making - Medical Decision Making 58-year-old female presents for cough and left ear pain 2 weeks. Patient states she is coughing up green phlegm. Denies any shortness of breath or chest pain. Denies fevers or chills. No history of asthma or COPD however is a current smoker. Patient also complaining of left ear pain. On exam patient does have cerumen impaction noted in the left ear. Right ear appears normal. Lungs are clear to auscultation bilaterally. There is no wheezing rhonchi or rales. Vitals are stable.Chest x-ray shows no acute process. No evidence for focal pneumonia. However as patient has had congestion and a cough for 2 weeks she will be treated with azithromycin to cover for atypical pneumonia. Patient will follow up with primary care in 1-2 days. She'll return here if she has any worsening symptoms. I discussed this case with attending Dr. Reis who agrees with this assessment and treatment plan. Disposition Clinical Impression: Cough, Impacted cerumen of left ear Disposition: HOME SELF-CARE Condition: Good Instructions (If sedation given, give patient instructions): Upper Respiratory Infection (ED) Additional Instructions: Please take antibiotic as directed. Please follow-up with primary care in 1-2 days. Please return here to the emergency department if you have any worsening symptoms. Prescriptions: Azithromycin [Zithromax Z-pack] 250 mg PO DIRECTED #6 tab Is patient prescribed a controlled substance at d/c from ED?: No Referrals: Jeremi Rao DO [Primary Care Provider] - 1-2 days Time of Disposition: 14:48
[2019-02-20 15:06] VITALS: BP 120/68; PULSE 68; RESP 16
== END 2019-02-20 15:01 | disposition home or self-care (01) ==
LOC: EC 13:20
DX: H61.22 Impacted cerumen, left ear (principal); R05 Cough; F31.9 Bipolar disorder, unspecified; F17.200 Nicotine dependence, unspecified, uncomplicated; Z71.6 Tobacco abuse counseling; Z79.82 Long term (current) use of aspirin; Z79.899 Other long term (current) drug therapy
CPT/HCPCS: 69209; 71046; 99283

== ENCOUNTER 2021-08-08 13:33 | Emergency (ER) | payer MEDICARE, OTHER ==
[2021-08-08 14:34] VITALS: BP 97/64; PULSE 68; RESP 20; TEMP 98.2
[2021-08-08] MEDS ORDERED: MORPHINE SULFATE 4 MG/ML SYRINGE IM STA (15:48)
[2021-08-08] MEDS ORDERED: KETOROLAC 15 MG/ML 1 ML VIAL IM STA (15:48)
--- NOTE | 2021-08-08 15:55 | ED ---
General Adult HPI - General Chief complaint: Back Pain/Injury Stated complaint: back injury Time Seen by Provider: 08/08/21 15:29 Source: patient, RN notes reviewed Mode of arrival: ambulatory Limitations: no limitations - History of Present Illness Initial comments: Patient is a pleasant [age]-year-old female presenting to the emergency department with concerns with low back discomfort. Patient does have history of chronic low back comes however this feels different. Incident started while doing sit ups 2 days ago. Discomfort is near the right tailbone with radiation towards the right leg. No new incontinence or retention of bowel or bladder. No new weakness. No loss of sensation. No direct trauma to the region. - Related Data Home Medications Medication Instructions Recorded Confirmed Aspirin [Adult Low Dose Aspirin EC] 81 mg PO DAILY 10/30/17 10/30/17 QUEtiapine FUMARATE [SEROquel] 300 mg PO HS 10/30/17 10/30/17 QUEtiapine [SEROquel] 100 mg PO HS 10/30/17 10/30/17 Previous Rx's Medication Instructions Recorded Famotidine [Pepcid] 20 mg PO BID #60 tab 11/02/17 Folic Acid 1 mg PO DAILY #30 tablet 11/02/17 Ibuprofen [Motrin] 400 mg PO Q6HR PRN tab 11/02/17 LORazepam [Ativan] 1 mg PO TID PRN #15 tab 11/02/17 Multivitamins, Thera [Multivitamin] 1 tab PO DAILY #30 tablet 11/02/17 Nicotine 14Mg/24Hr Patch [Habitrol] 1 patch TRANSDERM DAILY #30 patch 11/02/17 Thiamine [Vitamin B-1] 100 mg PO DAILY #30 tablet 11/02/17 Azithromycin [Zithromax Z-pack (6 250 mg PO DIRECTED #6 tab 02/20/19 tabs)] Cyclobenzaprine [Flexeril] 10 mg PO TID PRN #12 tablet 08/08/21 predniSONE [Deltasone] 20 mg PO BID #10 tab 08/08/21 Allergies Allergy/AdvReac Type Severity Reaction Status Date / Time No Known Allergies Allergy Verified 08/08/21 14:31 Review of Systems ROS Statement: Those systems with pertinent positive or pertinent negative responses have been documented in the HPI. ROS Other: All systems not noted in ROS Statement are negative. Constitutional: Denies: fever Eyes: Denies: eye pain ENT: Denies: ear pain Respiratory: Denies: cough Cardiovascular: Denies: chest pain Endocrine: Denies: fatigue Gastrointestinal: Denies: abdominal pain Genitourinary: Denies: dysuria Musculoskeletal: Reports: as per HPI Skin: Denies: rash Neurological: Denies: weakness Past Medical History Past Medical History: Hyperlipidemia, Osteoarthritis (OA) Additional Past Medical History / Comment(s): chronic neck and back pain, ETOH abuse, cyst on liver, IBS, Capral Tunnel Syndrome History of Any Multi-Drug Resistant Organisms: None Reported Past Surgical History: Back Surgery, Orthopedic Surgery Past Anesthesia/Blood Transfusion Reactions: No Reported Reaction Past Psychological History: Anxiety, Bipolar, Depression Smoking Status: Current every day smoker Past Alcohol Use History: None Reported Past Drug Use History: None Reported - Past Family History Brother(s) Additional Family Medical History / Comment(s): Suicide 2 brothers. General Exam Limitations: no limitations General appearance: alert, in no apparent distress Head exam: Present: normocephalic Eye exam: Present: normal appearance Neck exam: Present: normal inspection Respiratory exam: Present: normal lung sounds bilaterally Cardiovascular Exam: Present: regular rate, normal rhythm GI/Abdominal exam: Present: soft. Absent: tenderness Extremities exam: Present: normal inspection. Absent: tenderness Back exam: Present: tenderness (Tenderness right sacroiliac region). Absent: paraspinal tenderness, vertebral tenderness Neurological exam: Present: alert. Absent: motor sensory deficit Expanded Sensory exam: Lower Extremity Light Touch: Normal Motor strength exam: RLE: 5, LLE: 5 Psychiatric exam: Present: normal affect, normal mood Skin exam: Present: normal color Course Vital Signs 08/08/21 14:31 Temperature 98.2 F Pulse Rate 68 Respiratory 20 Rate Blood Pressure 97/64 O2 Sat by Pulse 97 Oximetry Medical Decision Making - Medical Decision Making Patient reevaluated and updated - Radiology Data Radiology results: image reviewed (Pelvis x-ray shows no acute process) Disposition Clinical Impression: Sciatica Disposition: HOME SELF-CARE Condition: Stable Instructions (If sedation given, give patient instructions): Sciatica (ED) Additional Instructions: Please follow-up with primary care physician in the next couple days for recheck. Prescription for muscle relaxers and steroids have been sent to pharmacy. Return for weakness, loss of control of bowel or bladder, loss of sensation, worsening symptoms or other concerns. If symptoms continue consider physical therapy or referral for orthopedics/back specialist. Prescriptions: predniSONE [Deltasone] 20 mg PO BID #10 tab Cyclobenzaprine [Flexeril] 10 mg PO TID PRN #12 tablet PRN Reason: Pain Is patient prescribed a controlled substance at d/c from ED?: No Referrals: [facility] [Primary Care Provider] - 1-2 days Time of Disposition: 16:49
[2021-08-08] MEDS ORDERED: ORPHENADRINE 30 MG/ML 2 ML VIAL IM STA (15:58)
--- NOTE | 2021-08-08 16:14 | XR ---
EXAMINATION TYPE: XR pelvis AP view DATE OF EXAM: 08/08/2021 CLINICAL HISTORY: Pain after injury today. TECHNIQUE: A single AP view of the pelvis is obtained. COMPARISON: None. FINDINGS: There is no acute fracture/dislocation evident in the pelvis. Mild axial joint space loss in both hips. The sacroiliac joints appear within normal limits. Pubic symphysis is intact. Location of scattered tiny bilateral pelvic phleboliths. Postsurgical change lumbosacral junction is present. IMPRESSION: There is no acute fracture or dislocation in the pelvis.
== END 2021-08-08 16:53 | disposition home or self-care (01) ==
LOC: EC 13:33
DX: M54.41 Lumbago with sciatica, right side (principal); E78.5 Hyperlipidemia, unspecified; M19.90 Unspecified osteoarthritis, unspecified site; F31.9 Bipolar disorder, unspecified; F41.9 Anxiety disorder, unspecified; F17.200 Nicotine dependence, unspecified, uncomplicated; Z79.82 Long term (current) use of aspirin; Z79.899 Other long term (current) drug therapy
CPT/HCPCS: 72170; 99283; 96372 ×2; J2360; J1885

== ENCOUNTER 2023-01-31 13:09 | Emergency (ER) | payer MEDICARE, OTHER ==
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
--- NOTE | 2023-01-31 13:40 | XR ---
EXAMINATION TYPE: XR wrist complete RT DATE OF EXAM: 01/31/2023 COMPARISON: NONE HISTORY: Pain TECHNIQUE: Four views submitted. FINDINGS: There is an impacted displaced intra-articular fracture of the distal radius. Ulnar styloid fracture noted. Chronic appearing sclerosis of the scaphoid could be correlated with CT scan. There is scaphot rapezial and first carpometacarpal arthropathy in a pattern suggestive of osteoarthritis. Diffuse ost eopenia. IMPRESSION: 1. Impacted intra-articular comminuted fracture distal radius. 2. Ulnar styloid fracture. 3. Sclerosis involving the scaphoid most likely is chronic. Correlation with short-term follow-up CT scan.
[2023-01-31] MEDS ORDERED: PROPOFOL 10 MG/ML 20 ML VIAL IV ONE (14:16)
[2023-01-31 15:18] VITALS: RESP 18
--- NOTE | 2023-01-31 15:34 | XR ---
EXAMINATION TYPE: XR wrist limited RT DATE OF EXAM: 01/31/2023 COMPARISON: 01/31/2023 HISTORY: Post reduction TECHNIQUE: 2 views submitted FINDINGS: Interval marked improvement of alignment with persistent displacement and comminuted fractu re intra-articular distal radius. Displaced ulnar styloid fracture. Arthropathy of the trapezius scaphoid and first carpal metacarpal joint in a pattern compatible osteo arthritis. Adjacent soft tissue ossification appears chronic adjacent to the trapezium. Soft tissue edema and overlying casting or wrapping material. Thin lucency near the waist of the scap hoid. IMPRESSION: 1. A comminuted intra-articular fracture distal radius with improved alignment. Mildly displaced ulna r styloid fracture. 2. Could not exclude a fracture of the waist of the scaphoid consider CT scan.
[2023-01-31 17:06] VITALS: BP 126/87; PULSE 54; TEMP 98.1
== END 2023-01-31 17:14 | disposition home or self-care (01) ==
LOC: EC 13:09
DX: S52.571A Other intraarticular fracture of lower end of right radius, initial encounter for closed fracture (principal); S52.611A Displaced fracture of right ulna styloid process, initial encounter for closed fracture; F31.9 Bipolar disorder, unspecified; F41.9 Anxiety disorder, unspecified; F17.200 Nicotine dependence, unspecified, uncomplicated; Z79.82 Long term (current) use of aspirin; Z79.899 Other long term (current) drug therapy; V13.4XXA Pedal cycle driver injured in collision with car, pick-up truck or van in traffic accident, initial encounter; Y92.481 Parking lot as the place of occurrence of the external cause; Y93.55 Activity, bike riding
CPT/HCPCS: 73100; 73110; 99284; 25605; 99152; J2704

== ENCOUNTER → 2023-08-24 | Outpatient (CLI) | payer MEDICARE, OTHER ==
--- NOTE | 2023-08-27 16:27 | MR ---
EXAMINATION TYPE: MR lumbar spine wo/w con DATE OF EXAM: 08/24/2023 COMPARISON: None HISTORY: Low back pain into left side x3 months CONTRAST: 6.5 mL intravenous Gadavist. TECHNIQUE: Multiplanar, multisequence images of the lumbar spine were acquired. FINDINGS: L5-S1: No significant disc bulge or disc herniation. No spinal canal stenosis. No foraminal stenosi s. Pedicle screws are present. L4-L5: A small central disc herniation. Subligamentous extension beyond the endplate of L4 is evident . Minimal anterior spinal canal contact is present but no spinal canal stenosis is present. Foramen a re patent No spinal canal stenosis. No foraminal stenosis. L3-L4: No significant disc bulge or disc herniation. No spinal canal stenosis. No foraminal stenos is. L2-L3: May be a tiny left paracentral protrusion with minimal anterior thecal sac compression. No spi nal canal stenosis present. Neural foramen are patent. L1-L2: No significant disc bulge or disc herniation. No spinal canal stenosis. No foraminal stenosi s. T12-L1: No significant disc bulge or disc herniation. No spinal canal stenosis. No foraminal stenos is. No abnormal enhancement. Incidental note is made of bilateral renal cysts. IMPRESSION: 1. Small central subligamentous disc herniation L4-5 with extension behind the L4 endplate. No stenos is is present. 2. Minimal left paracentral protrusion L3-4.
== END | disposition home or self-care (01) ==
LOC: RADMRIMAIN 07:36
PROVIDERS: ATTEND Physical Medicine & Rehabilitation
DX: M51.26 Other intervertebral disc displacement, lumbar region (principal)
CPT/HCPCS: 72158; A9585

== ENCOUNTER → 2023-12-18 | Outpatient (CLI) | payer MEDICARE, OTHER ==
--- NOTE | 2023-12-23 09:21 | MM ---
Reason for Exam: Screening (asymptomatic). Last mammogram was performed 2 year(s) and 4 month(s) ago. Patient History: Menarche at age 8. First Full-Term at age 16. Left ovary removed at age 20. Postmenopausal. Other cancer at or over age 50. Risk Values: Lucina 5 year model risk: 1.3%. NCI Lifetime model risk: 5.2%. Prior Study Comparison: 08/03/2021 Bilateral MG 3D screening mammo w/cad, Unknown. Tissue Density: The breasts are heterogeneously dense, which may obscure small masses. Findings: Analyzed By CAD. There is no suspicious group of microcalcifications or new suspicious mass in either breast. Overall Assessment: Benign, BI-RAD 2 Management: Screening Mammogram of both breasts in 1 year. . Patient should continue monthly self-breast exams. A clinical breast exam by your physician is recommended on an annual basis. This exam should not preclude additional follow-up of suspicious palpable abnormalities. Note on Lucina scores and lifetime risk: 1. A Lucina score greater than 3% is considered moderate risk. If this is the case, consider specialist referral to assess eligibility for a risk reducing agent. 2. If overall lifetime risk for the development of breast cancer is 20% or higher, the patient may qualify for future screening with alternating mammogram and breast MRI. Electronically signed and approved by: Tommy Allen M.D. Radiologis
== END | disposition home or self-care (01) ==
LOC: RADMAMWWP 12:19
PROVIDERS: ATTEND Internal Medicine Pulmonary Disease
DX: Z12.31 Encounter for screening mammogram for malignant neoplasm of breast (principal); R92.333 Mammographic heterogeneous density, bilateral breasts; Z78.0 Asymptomatic menopausal state
CPT/HCPCS: 77063; 77067

== ENCOUNTER → 2024-12-11 | Outpatient (CLI) | payer MEDICARE, OTHER ==
--- NOTE | 2024-12-14 20:30 | CTL ---
EXAMINATION TYPE: CT Low Dose Lung DATE OF EXAM: 12/11/2024 11:59 AM COMPARISON: Radiograph 02/20/2019 CLINICAL INDICATION: Female, 64 years old with history of Z122 SCREEN [id number] JUSTINA DEP [id number] EMPHYSEMA, Current smoker, 1 ppd x 30 years, History of tobacco use. TECHNIQUE: Low dose computed tomography scan was performed through the chest at 1 mm thick sections a nd reconstructed images in multiple planes at 1 mm and [address] DLP: 65.70 mGycm, CT CTDI: 1.7 mGy, Automated exposure control for dose reduction was used. CT DIAGNOSTIC QUALITY: Satisfactory FINDINGS: Heart normal size without pericardial effusion. Minimal RCA coronary artery calcifications are presen t. Borderline ectatic ascending aorta 3.5 cm. Minimal atherosclerotic arch calcifications. The majority vessel branching anatomy. Borderline ectatic lower descending thoracic aorta at 2.5 cm. No thoracic lymphadenopathy by CT size criteria. Bands of atelectasis or scarring of the lower lungs. Moderate emphysematous change. Minimal biapical pleural-parenchymal scarring. No consolidation or pleural effusion. * 6 mm right mid lung pulmonary nodule, axial image 161 * 2 mm posterior right midlung pulmonary nodule, axial image 123. * 8 mm lingular pulmonary nodule, axial image 10. Visualized upper abdomen shows bilateral renal cortical cysts measuring up to 7.3 cm on the right and 3.8 cm on the left. Tiny anterior splenule. Dextroconvex scoliosis mid thoracic spine. IMPRESSION: 1. LungRADS 3, probably benign; a few pulmonary nodules measuring up to 8 mm on baseline screening. 2. COPD with moderate emphysema. Bands of scarring/atelectasis in the lower lungs. Advise smoking evelyn sation. CT LUNG RAD AND CT CHEST RECOMMENDATION: Lung-Rad 3 Probably Benign: 6 month follow-up LDCT. S Modifier (other clinically significant findings): None [facility], , 12/14/2024 8:28 PM
== END | disposition home or self-care (01) ==
LOC: RADCTMAIN 10:57
PROVIDERS: ATTEND Internal Medicine Pulmonary Disease
DX: Z12.2 Encounter for screening for malignant neoplasm of respiratory organs (principal); F17.210 Nicotine dependence, cigarettes, uncomplicated; J43.9 Emphysema, unspecified
CPT/HCPCS: 71271